=== PATIENT | female | born 1960 | race Two or more races ===

== ENCOUNTER 2023-02-08 06:56 | Inpatient (IN) | payer MEDICAID ==
[2023-02-07 13:10] LABS: Basophils # (auto) 0.1 10 ^3/uL (0-0.2); Basophils % (auto) 0.6 % (0.0-2.0); Eosinophils # (auto) 0.1 10 ^3/uL (0-0.8); Eosinophils % (auto) 1.4 % (0.0-7.0); Hematocrit 44.4 % (36.0-46.0); Hemoglobin 14.9 g/dL (12.2-16.2); Lymphocytes # (auto) 2.9 10 ^3/uL (0.4-5.4); Lymphocytes % (auto) 31.9 % (10.0-50.0); Mean Corpuscular Hemoglobin 33.1 pg (28.0-32.0); Mean Corpuscular Hgb Conc. 33.5 g/dL (32.0-36.0); Mean Corpuscular Volume 98.8 fL (80.0-100.0); Monocytes # (auto) 0.7 10 ^3/uL (0-1.3); Monocytes % (auto) 8.3 % (0.0-12.0); Neutrophils # (auto) 5.2 10 ^3/uL (1.6-8.6); Neutrophils % (auto) 57.8 % (37.0-80.0); Red Blood Cells 4.49 10^6/uL (4.0-5.20); Red Cell Distribution Width 13.6 % (11.8-14.3); White Blood Cell 8.9 10^3/uL (4.4-10.8)
[2023-02-07 13:13] LABS: Urine Bacteria NONE SEEN /hpf (None Seen); Urine Blood Negative /uL (Negative); Urine Specific Gravity 1.005 (1.001-1.035); Urine WBC <1 /hpf (0 - 5)
[2023-02-07 13:26] LABS: INR 1.03 (0.9-1.15); Partial Thromboplastin Time 26.4 sec (24.6-33.4)
[2023-02-07 13:46] LABS: BUN/Creatinine Ratio 17.9 (10.0-20.0); Potassium 4.1 mmol/L (3.5-5.1)
[2023-02-07 13:51] LABS: Bilirubin, Total 0.7 mg/dL (0.2-1.0); Total Protein 7.7 g/dL (6.4-8.2)
[~2023-02-08] VITALS: Ht 160 cm; Wt 91.3 kg
[~2023-02-08 06:56] MED LIST: CHOL100047 PO; MAGN400T40 OR
[2023-02-08] MEDS ORDERED: ceFAZolin 1GM/50ML 100 ML IV ONE (08:05)
[2023-02-08] MEDS ORDERED: MIDAZOLAM HCL 2MG/2ML 2ml VIAL (1mg/ml) ONE (08:58)
[2023-02-08] MEDS ORDERED: fentaNYL CITRATE 100 MCG/2 ML VL ONE (08:58)
[2023-02-08] MEDS ORDERED: ONDANSETRON HCL 4 MG/2 ML VIAL ONE (08:58)
[2023-02-08] MEDS ORDERED: SODIUM CHLORIDE LOCK 10 ML ONE (08:58)
[2023-02-08] MEDS ORDERED: PROPOFOL 10 MG/ML 20 ML IV ONE (08:58)
[2023-02-08] MEDS ORDERED: METOCLOPRAMIDE HCL 5MG/ml INJ 2ml VIAL IV PRN (09:30)
[2023-02-08] MEDS ORDERED: MORPHINE SULFATE INJ 2 MG/ml SYRG IV PRN (09:30)
[2023-02-08] MEDS ORDERED: HYDROmorphone HCL 2 MG/ML VL/or syr IV PRN ×3 (09:30→14:00)
[2023-02-08] MEDS ORDERED: AUG875T PO (12:10)
[2023-02-08] MEDS ORDERED: HYDR-4902 PO ×2 (12:10)
[2023-02-08] MEDS ORDERED: DOCUSATE SOD 100 MG CAP PO PRN (14:30)
[2023-02-08] MEDS ORDERED: ONDANSETRON HCL 4 MG/2 ML VIAL IV PRN (14:30)
[2023-02-08] MEDS: HYDROcodone-ACET 5/325MG TAB PO PRN ×2 (15:52→23:27)
[2023-02-08 15:53] VITALS: BP 162/81
[2023-02-08] MEDS: SODIUM CHLORIDE 0.9% 1,000 ML IV SCH (15:56)
[2023-02-08] MEDS: HYDROmorphone HCL 2 MG/ML VL/or syr IV PRN (20:50)
[2023-02-08 22:00] VITALS: BP 142/62
[2023-02-09] MEDS: HYDROmorphone HCL 2 MG/ML VL/or syr IV PRN ×3 (02:42→22:47)
[2023-02-09] MEDS ORDERED: ACETAMINOPHEN 325 MG TAB PO PRN (03:00)
[2023-02-09 05:00] VITALS: BP 130/59
[2023-02-09] MEDS: HYDROcodone-ACET 5/325MG TAB PO PRN ×2 (05:59→16:04)
[2023-02-09] MEDS: SODIUM CHLORIDE 0.9% 1,000 ML IV SCH (06:01)
[2023-02-09 06:52] LABS: Basophils # (auto) 0 10 ^3/uL (0-0.2); Basophils % (auto) 0.3 % (0.0-2.0); Eosinophils # (auto) 0 10 ^3/uL (0-0.8); Eosinophils % (auto) 0.2 % (0.0-7.0); Hematocrit 39.2 % (36.0-46.0); Hemoglobin 13.6 g/dL (12.2-16.2); Lymphocytes # (auto) 2.1 10 ^3/uL (0.4-5.4); Lymphocytes % (auto) 16.2 % (10.0-50.0); Mean Corpuscular Hemoglobin 33.7 pg (28.0-32.0); Mean Corpuscular Hgb Conc. 34.7 g/dL (32.0-36.0); Mean Corpuscular Volume 97.1 fL (80.0-100.0); Monocytes # (auto) 1.7 10 ^3/uL (0-1.3); Monocytes % (auto) 12.9 % (0.0-12.0); Neutrophils # (auto) 9.3 10 ^3/uL (1.6-8.6); Neutrophils % (auto) 70.4 % (37.0-80.0); Red Blood Cells 4.04 10^6/uL (4.0-5.20); Red Cell Distribution Width 13.5 % (11.8-14.3); White Blood Cell 13.1 10^3/uL (4.4-10.8)
[2023-02-09 07:04] LABS: Albumin 3.3 g/dL (3.4-5.0); Calcium 8.2 mg/dL (8.5-10.1); Potassium 3.8 mmol/L (3.5-5.1)
[2023-02-09 07:08] LABS: BUN/Creatinine Ratio 18.8 (10.0-20.0); Bilirubin, Total 0.9 mg/dL (0.2-1.0); Total Protein 6.5 g/dL (6.4-8.2)
[2023-02-09 09:00] VITALS: BP 126/56
[2023-02-09 12:46] VITALS: BP 113/77
[2023-02-09 16:48] VITALS: BP 143/71
[2023-02-09 22:00] VITALS: BP 146/80
[2023-02-10 05:00] VITALS: BP 140/76
[2023-02-10] MEDS: HYDROcodone-ACET 5/325MG TAB PO PRN ×3 (05:36→17:34)
[2023-02-10 13:00] VITALS: BP_SYST 123; BP_SYST 138; BP_DIAS 62; BP_DIAS 68
[2023-02-10] MEDS ORDERED: HYDR-4902 PO (17:33)
[2023-02-10 18:03] VITALS: BP 138/68
[2023-02-12] MEDS ORDERED: APIX5TAB PO (07:05)
== END 2023-02-10 19:05 | disposition home or self-care (01) | DRG 314 ==
LOC: SUR 06:56 → OVERFLOW 14:23 → WEST WING 15:17
PROVIDERS: ADMIT Nurse Practitioner Family; ATTEND Internal Medicine
PROC: 0QB Lower Bones, Excision (ICD-10-PCS; 2023-02-08)
PROC: 0SU Lower Joints, Supplement (ICD-10-PCS; principal; 2023-02-08 09:54)
DX: M85.671 Other cyst of bone, right ankle and foot (principal); M12.271 Villonodular synovitis (pigmented), right ankle and foot; M13.871 Other specified arthritis, right ankle and foot; M92.61 Juvenile osteochondrosis of tarsus, right ankle; Z86.711 Personal history of pulmonary embolism
CPT/HCPCS: 36415; 73610; 73630; 80053; 81001; 85025; 85610; 85730; 97110; 97116; 97163; 97530; G0378; J0690; J2250; J2405; J2704